=== PATIENT | male | born 1965 | race African-American/Black ===

== ENCOUNTER → 2017-01-18 | Outpatient (CLI) | payer BC ==
[~2017-01-18] MED LIST: NO MEDICATIONS
--- NOTE | ~2017-01-18 | ST ---
Unit #: [id number] #: [id number] Patient: GREYSON CHENG [id number] [address] [address] [id number] O MR#: [id number] NAME: GREYSON CHENG : 1965 SEX: M STUDY DATE/TIME: UNIT: [facility] ROOM: STUDY DESCRIPTION: Stress Test Attending Physician: Julio César Ramírez M.D. Referring Physician: Julio César Ramírez M.D. Primary Care Physician: Julio César Ramírez M.D. CARDIOLOGY REPORT EXAM Stress ECG INDICATION Dyspnea, chest pain. SUMMARY The patient exercised on a Tian protocol to maximal effort. The heart rate increased from 60 and the blood pressure increased from 130/90 to a heart rate of 136, and a blood pressure of 190/100. The patient completed 9 minutes 43 seconds of exercise, and did not develop chest pain. The resting ECG was abnormal with T wave inversion in all leads. With stress, there was pseudonormalization of the T waves in all leads. There were no ST changes. IMPRESSION 1. Good exercise capacity. 2. Normal heart rate response. 3. Significant hypertensive blood pressure response. 4. Abnormal resting and stress ECG, but not diagnostic of ischemia with no ST changes. The pseudonormalization of the T waves likely represents the severe hypertensive response to stress. Dictated by... Abner Gotti M.D. KARL/loly TD: 01/18/2017 11:52 JOB #: [id number] Unit #: [id number] #: [id number] Patient: GREYSON CHENG CARDIOLOGY REPORT Page 1 of 1 X Abner Gotti MD CARDIOLOGY REPORT
== END | disposition home or self-care (01) ==
LOC: CEKG 07:33
DX: R07.89 Other chest pain (principal); E78.5 Hyperlipidemia, unspecified; I10 Essential (primary) hypertension; R94.39 Abnormal result of other cardiovascular function study
CPT/HCPCS: 93017